=== PATIENT | female | born 1965 | race American Indian/Alaskan Native ===

== ENCOUNTER 2017-04-28 11:42 | Observation (INO) | payer BC, MEDICARE ==
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
[2017-04-28 13:10] LABS: Basophils % (Auto) 0.4 % (0.0-1.8); Eosinophils % (Auto) 0.5 % (0.0-4.3); Hematocrit 37.7 % (30.3-42.9); Hemoglobin 12.1 gm/dl (10.1-14.3); Mean Corpuscular HGB Conc 32 % (30-34); Mean Corpuscular Volume 77 fl (79-97); Platelet Count 233 K/mm3 (140-440); Red Blood Count 4.87 M/mm3 (3.65-5.03); Red Cell Distribution Width 15.1 % (13.2-15.2); White Blood Count 6.1 K/mm3 (4.5-11.0)
[2017-04-28 13:19] LABS: Mean Corpuscular Hemoglobin 25 pg (28-32)
--- NOTE | 2017-04-28 13:26 | XRay Report ---
Single view chest: Compared to 12/05/15. The History: Chest pain. Findings: Normal cardiomediastinal silhouette. Trachea is midline. No consolidation, pneumothorax or pleural effusion. Impression: No acute cardiopulmonary findings.
[2017-04-28 13:44] LABS: Anion Gap 18 mmol/L; BUN/Creatinine Ratio 11.11; Blood Urea Nitrogen 10 mg/dL (7-17); Calcium 9.4 mg/dL (8.4-10.2); Carbon Dioxide 25 mmol/L (22-30); Chloride 104.3 mmol/L (98-107); Glucose 93 mg/dL (65-100); Potassium 3.7 mmol/L (3.6-5.0); Sodium 144 mmol/L (137-145)
[2017-04-28] MEDS ORDERED: MORPHINE IV ONE (13:53)
[2017-04-28] MEDS ORDERED: ASPIRIN PO ONE ×2 (13:53→15:45)
[2017-04-28] MEDS ORDERED: LOVENOX SUB-Q SCH (22:00)
--- NOTE | 2017-04-28 22:51 | History and Physical Report ---
History of Present Illness Date of examination: 04/28/17 Date of admission: 04/28/17 17:01 Chief complaint: Chest pain for few hrs History of present illness: [place]: Patient is a 52-year-old presents to the emergency department with complaint of chest pain. She states the pain started approximately an hour prior to arrival and lasted approximately one hour. She describes the pain as a as sharp in his center chest radiating to her jaw and down her left arm. Denies shortness of breath or nausea. States that she has had a stress test but is unclear as to when it last was performed. She also complains of total body pain. MD Complaint: chest pain -: Sudden Onset: during rest Pain Location: substernal Pain Radiation: neck, jaw/teeth Severity: moderate Quality: sharp Improves With: nothing Worsens With: nothing Other Symptoms: denies: cough, fever, syncope, rash, leg swelling, palpitations , burping - Related Data Home Medications Medication Instructions Recorded Confirmed Last Taken ALPRAZolam [Xanax TAB] 0.5 mg PO BID PRN 12/05/15 12/05/15 Unknown ARIPiprazole [Abilify] 15 mg PO DAILY 12/05/15 12/05/15 Unknown Duloxetine HCl [Cymbalta] 60 mg PO BID 12/05/15 12/05/15 Unknown Gabapentin [Neurontin] 600 mg PO QID 12/05/15 12/05/15 Unknown HYDROcodone/APAP 10-325 [[place] 1 each PO Q8HR PRN 12/05/15 12/05/15 Unknown 10/325] Hydrochlorothiazide [HCTZ] 25 mg PO QDAY 12/05/15 12/05/15 Unknown LORazepam [Ativan] 0.5 mg PO BID PRN 12/05/15 12/05/15 Unknown tiZANidine [Zanaflex] 4 mg PO DAILY PRN 12/05/15 12/05/15 Unknown Allergies Allergy/AdvReac Type Severity Reaction Status Date / Time No Known Allergies Allergy Verified 12/05/15 12:52 Heart Score - HEART Score History: Highly suspicious EKG: Normal Age: 45-65 Risk factors: 1-2 risk factors Troponin: < normal limit HEART Score: 4 - Critical Actions Critical Actions: 4-6 pts:12-16.6% risk of adverse cardiac event. Should be admitted ED Review of Systems ROS: Stated complaint: CHEST PAIN Other details as noted in HPI Constitutional: denies: chills, fever Eyes: denies: eye pain, eye discharge, vision change ENT: denies: ear pain, throat pain Respiratory: denies: cough, shortness of breath, wheezing Cardiovascular: denies: chest pain, palpitations Endocrine: no symptoms reported Gastrointestinal: denies: abdominal pain, nausea, diarrhea Genitourinary: denies: urgency, dysuria, discharge Musculoskeletal: denies: back pain, joint swelling, arthralgia Skin: denies: rash, lesions Neurological: denies: headache, weakness, paresthesias Psychiatric: denies: anxiety, depression Hematological/Lymphatic: denies: easy bleeding, easy bruising ED Past Medical Hx - Past Medical History Hx Hypertension: Yes Hx CVA: No Hx Heart Attack/AMI: No Hx Congestive Heart Failure: No Hx Diabetes: Yes Additional medical history: fibromyalgia chronic back pain - Surgical History Past Surgical History?: No - Family History Family history: no significant - Social History Smoking Status: Never Smoker Substance Use Type: None - Medications Home Medications: Home Medications Medication Instructions Recorded Confirmed Last Taken Type ALPRAZolam [Xanax TAB] 0.5 mg PO BID PRN 12/05/15 12/05/15 Unknown History ARIPiprazole [Abilify] 15 mg PO DAILY 12/05/15 12/05/15 Unknown History Duloxetine HCl [Cymbalta] 60 mg PO BID 12/05/15 12/05/15 Unknown History Gabapentin [Neurontin] 600 mg PO QID 12/05/15 12/05/15 Unknown History HYDROcodone/APAP 10-325 [[place] 1 each PO Q8HR PRN 12/05/15 12/05/15 Unknown History 10/325] Hydrochlorothiazide [HCTZ] 25 mg PO QDAY 12/05/15 12/05/15 Unknown History LORazepam [Ativan] 0.5 mg PO BID PRN 12/05/15 12/05/15 Unknown History tiZANidine [Zanaflex] 4 mg PO DAILY PRN 12/05/15 12/05/15 Unknown History Medications and Allergies Allergies Allergy/AdvReac Type Severity Reaction Status Date / Time No Known Allergies Allergy Verified 12/05/15 12:52 Home Medications Medication Instructions Recorded Confirmed Last Taken Type ARIPiprazole [Abilify] 15 mg PO DAILY 12/05/15 04/28/17 Unknown History Duloxetine HCl [Cymbalta] 60 mg PO BID 12/05/15 04/28/17 Unknown History Gabapentin [Neurontin] 600 mg PO BID 12/05/15 04/28/17 Unknown History HYDROcodone/APAP 10-325 [[place] 1 each PO Q8HR PRN 12/05/15 04/28/17 Unknown History 10/325] LORazepam [Ativan] 0.5 mg PO BID PRN 12/05/15 04/28/17 Unknown History tiZANidine [Zanaflex] 2 mg PO TID PRN 12/05/15 04/28/17 Unknown History Lidocaine/Transparent Dressing 5 mg TRANSDERMA BID 04/28/17 04/28/17 Unknown History Exam - Physical Exam Narrative exam: Lying comfortable in the bed - Constitutional Vitals: Temp Pulse Resp BP Pulse Ox 98.0 F 57 L 18 112/62 100 04/28/17 21:24 04/28/17 21:24 04/28/17 21:24 04/28/17 21:24 04/28/17 21:24 General appearance: Present: no acute distress, well-nourished - EENT Eyes: Present: PERRL ENT: hearing intact, clear oral mucosa - Neck Neck: Present: supple, normal ROM - Respiratory Respiratory effort: normal Respiratory: bilateral: CTA - Cardiovascular Heart rate: 76 Rhythm: regular Heart Sounds: Present: S1 & S2. Absent: rub, click - Extremities Extremities: no ischemia, pulses symmetrical, No edema Peripheral Pulses: within normal limits - Abdominal General gastrointestinal: Present: soft, non-tender, non-distended, normal bowel sounds Female genitourinary: Present: normal - Integumentary Integumentary: Present: clear, warm, dry - Musculoskeletal Musculoskeletal: gait normal, strength equal bilaterally - Psychiatric Psychiatric: appropriate mood/affect, intact judgment & insight - Neurologic Neurologic: CNII-XII intact, moves all extremities - Allied Health Allied health notes reviewed: nursing Results - Labs CBC & Chem 7: 04/28/17 12:53 04/28/17 12:53 Labs: Laboratory Last Values WBC 6.1 K/mm3 (4.5-11.0) 04/28/17 12:53 RBC 4.87 M/mm3 (3.65-5.03) 04/28/17 12:53 Hgb 12.1 gm/dl (10.1-14.3) 04/28/17 12:53 Hct 37.7 % (30.3-42.9) 04/28/17 12:53 MCV 77 fl (79-97) L 04/28/17 12:53 MCH 25 pg (28-32) L 04/28/17 12:53 MCHC 32 % (30-34) 04/28/17 12:53 RDW 15.1 % (13.2-15.2) 04/28/17 12:53 Plt Count 233 K/mm3 (140-440) 04/28/17 12:53 Lymph % (Auto) 45.5 % (13.4-35.0) H 04/28/17 12:53 [place] % (Auto) 7.3 % (0.0-7.3) 04/28/17 12:53 Eos % (Auto) 0.5 % (0.0-4.3) 04/28/17 12:53 Baso % (Auto) 0.4 % (0.0-1.8) 04/28/17 12:53 Lymph # 2.8 K/mm3 (1.2-5.4) 04/28/17 12:53 [place] # 0.4 K/mm3 (0.0-0.8) 04/28/17 12:53 Eos # 0.0 K/mm3 (0.0-0.4) 04/28/17 12:53 Baso # 0.0 K/mm3 (0.0-0.1) 04/28/17 12:53 Seg Neutrophils % 46.3 % (40.0-70.0) 04/28/17 12:53 Seg Neutrophils # 2.8 K/mm3 (1.8-7.7) 04/28/17 12:53 Sodium 144 mmol/L (137-145) 04/28/17 12:53 Potassium 3.7 mmol/L (3.6-5.0) 04/28/17 12:53 Chloride 104.3 mmol/L (98-107) 04/28/17 12:53 Carbon Dioxide 25 mmol/L (22-30) 04/28/17 12:53 Anion Gap 18 mmol/L 04/28/17 12:53 BUN 10 mg/dL (7-17) 04/28/17 12:53 Creatinine 0.9 mg/dL (0.7-1.2) 04/28/17 12:53 Estimated GFR > 60 ml/min 04/28/17 12:53 BUN/Creatinine Ratio 11.11 % 04/28/17 12:53 Glucose 93 mg/dL (65-100) 04/28/17 12:53 Calcium 9.4 mg/dL (8.4-10.2) 04/28/17 12:53 Troponin T < 0.010 ng/mL (0.00-0.029) 04/28/17 12:53 Short CBC 04/28/17 Range/Units 12:53 WBC 6.1 (4.5-11.0) K/mm3 Hgb 12.1 (10.1-14.3) gm/dl Hct 37.7 (30.3-42.9) % Plt Count 233 (140-440) K/mm3 BMP 04/28/17 12:53 Sodium 144 Potassium 3.7 Chloride 104.3 Carbon Dioxide 25 BUN 10 Creatinine 0.9 Glucose 93 Calcium 9.4 Cardiac Enzymes 04/28/17 Range/Units 12:53 Troponin T < 0.010 (0.00-0.029) ng/mL - Imaging and Cardiology EKG: report reviewed (normal sinus rhythm no acute ST-T wave changes) Assessment and Plan Advance Directives: Yes (full code) VTE prophylaxis?: Chemical Plan of care discussed with patient/family: Yes - Patient Problems (1) Acute coronary syndrome Current Visit: Yes Status: Acute Plan to address problem: We will get serial cardiac enzymes and Lexiscan in the morning. Differential diagnosis of costochondritis and reflux esophagitis ruled out. (2) Hypertension Current Visit: Yes Status: Chronic Qualifiers: Hypertension type: essential hypertension Qualified Code(s): I10 - Essential (primary) hypertension Plan to address problem: Continue antihypertensives (3) Diabetes Current Visit: Yes Status: Chronic Qualifiers: Diabetes mellitus type: type 2 Diabetes mellitus complication status: without complication Diabetes mellitus complication detail: D Diabetic retinopathy severity: D Proliferative retinopathy type: P Diabetes mellitus macular edema: D Diabetes mellitus terminal press operator insulin use: D Laterality: L Chronic kidney disease stage: C Plan to address problem: Not on any medications. Will give coverage with insulin depending on Accu- Cheks. (4) Fibromyalgia Current Visit: Yes Status: Chronic Plan to address problem: Continue Zanaflex. And gabapentin. (5) DVT prophylaxis Current Visit: Yes Status: Acute Plan to address problem: On Lovenox 40 mg subcutaneous daily
[2017-04-28] MEDS ORDERED: NORCO 10/325 PO PRN (22:58)
[2017-04-28] MEDS ORDERED: DILAUDID IV PRN (22:58)
[2017-04-28] MEDS ORDERED: AMBIEN PO PRN (22:58)
[2017-04-28] MEDS ORDERED: ZOFRAN IV PRN (22:58)
[2017-04-28] MEDS ORDERED: TYLENOL PO PRN (22:58)
[2017-04-28] MEDS ORDERED: MILK OF MAGNESIA PO PRN (22:58)
[2017-04-28] MEDS ORDERED: ATIVAN PO PRN (22:58)
[2017-04-28] MEDS ORDERED: DULCOLAX PR PRN (22:58)
[2017-04-28] MEDS ORDERED: ZANAFLEX PO PRN (22:58)
[2017-04-28] MEDS ORDERED: NACL 0.9% 1000 ML 1,000 ML IV SCH (23:00)
[2017-04-28 23:59] LABS: Creatine Kinase MB 1.3 ng/mL (0.0-4.0)
[2017-04-28] MEDS: NEURONTIN PO SCH (23:59)
[2017-04-28] MEDS: CYMBALTA PO SCH (23:59)
[2017-04-28] MEDS: PEPCID IV SCH (23:59)
[2017-04-29 00:01] LABS: Creatine Kinase 78 units/L (30-135)
[2017-04-29 07:06] LABS: Basophils % (Auto) 0.6 % (0.0-1.8); Eosinophils % (Auto) 1.5 % (0.0-4.3); Hematocrit 35.7 % (30.3-42.9); Hemoglobin 11.5 gm/dl (10.1-14.3); Mean Corpuscular HGB Conc 32 % (30-34); Mean Corpuscular Volume 78 fl (79-97); Platelet Count 197 K/mm3 (140-440); Red Cell Distribution Width 15.2 % (13.2-15.2); White Blood Count 4.7 K/mm3 (4.5-11.0)
[2017-04-29 07:19] LABS: Creatine Kinase 64 units/L (30-135)
[2017-04-29 07:24] LABS: Mean Corpuscular Hemoglobin 25 pg (28-32)
[2017-04-29 08:12] LABS: Alanine Aminotransferase 6 units/L (7-56); Albumin 3.8 g/dL (3.9-5); Alkaline Phosphatase 59 units/L (35-129); Anion Gap 15 mmol/L; BUN/Creatinine Ratio 13.75; Blood Urea Nitrogen 11 mg/dL (7-17); Calcium 8.7 mg/dL (8.4-10.2); Carbon Dioxide 26 mmol/L (22-30); Chloride 106.4 mmol/L (98-107); Glucose 79 mg/dL (65-100); Potassium 4.1 mmol/L (3.6-5.0); Sodium 143 mmol/L (137-145)
[2017-04-29] MEDS ORDERED: ABILIFY PO SCH (10:00)
[2017-04-29] MEDS ORDERED: LIDOCAINE TRANSDERMA SCH (10:00)
--- NOTE | 2017-04-29 10:29 | Discharge Summary ---
Providers - Providers Date of Admission: 04/28/17 17:01 Attending physician: YARIEL ALMANZAR MD Primary care physician: REFRIGERATOR REPAIRMAN Hospitalization Condition: Stable Hospital course: Patient is a 52-year-old presents to the emergency department with complaint of chest pain. She states the pain started approximately an hour prior to arrival and lasted approximately one hour. She describes the pain as a as sharp in his center chest radiating to her jaw and down her left arm. She was admitted to the hospital, ACS was ruled out, a stress test was planned for her, however the cardiology team noted that she had a negative stress test just in January of this year. Chest pain was attributed to fibromyalgia patient was reassured and she was discharged home in improved condition. She was continued her home meds for her chronic conditions while she was in hospital, she was started on enteric- coated baby aspirin for cardioprotection. Discharge diagnoses Chest pain due to fibromyalgia Hypertension Diabetes [id number], type II Fibromyalgia Disposition: TO HOME OR SELFCARE Time spent for discharge: 33 minutes Core Measure Documentation - Palliative Care Palliative Care/ Comfort Measures: Not Applicable - Core Measures Any of the following diagnoses?: none Exam - Constitutional Vitals: Temp Pulse Resp BP Pulse Ox 98.0 F 53 L 20 100/52 100 04/29/17 05:55 04/29/17 05:55 04/29/17 05:55 04/29/17 05:55 04/29/17 05:55 General appearance: Present: no acute distress, well-nourished - EENT Eyes: Present: PERRL ENT: hearing intact, clear oral mucosa - Neck Neck: Present: supple, normal ROM - Respiratory Respiratory effort: normal Respiratory: bilateral: CTA - Cardiovascular Heart Sounds: Present: S1 & S2. Absent: rub, click - Extremities Extremities: pulses symmetrical, No edema Peripheral Pulses: within normal limits - Abdominal General gastrointestinal: Present: soft, non-tender, non-distended, normal bowel sounds Female genitourinary: Present: normal - Integumentary Integumentary: Present: clear, warm, dry - Musculoskeletal Musculoskeletal: gait normal, strength equal bilaterally - Psychiatric Psychiatric: appropriate mood/affect, intact judgment & insight - Neurologic Neurologic: CNII-XII intact, moves all extremities Plan Follow up with: PRIMARY CARE, [Primary Care Provider] - 3-5 Days Prescriptions: Aspirin EC [Aspirin Enteric Coated TAB] 81 mg PO QDAY #30 tablet.
[2017-04-29 10:33] LABS: Albumin/Globulin Ratio 1.5 %; Total Protein 6.3 g/dL (6.3-8.2)
[2017-04-29] MEDS: CYMBALTA PO SCH (13:31)
[2017-04-29] MEDS: NEURONTIN PO SCH (13:32)
[2017-04-29] MEDS: PEPCID IV SCH (13:32)
[2017-04-29 13:48] VITALS: BP 110/59
[2017-04-29] MEDS ORDERED: LOVENOX SUB-Q SCH (22:00)
== END 2017-04-29 14:38 | disposition home or self-care (01) ==
LOC: ED 11:42 → 4A 17:01
PROVIDERS: ADMIT Emergency Medicine; ATTEND Internal Medicine
DX: I24.9 Acute ischemic heart disease, unspecified (principal); I10 Essential (primary) hypertension; E11.9 Type 2 diabetes mellitus without complications; M79.7 Fibromyalgia
CPT/HCPCS: 36415; 71010; 80048; 80053; 82550; 82553; 84484; 85025; 93005; 93010; 96361; 96372; 96374; 96375; 99285; G0378; J1650; J2270; J7030

== ENCOUNTER 2018-03-25 15:15 | Emergency (ER) | payer BC, MEDICARE ==
[2018-03-25 16:25] LABS: Hematocrit 32.9 % (30.3-42.9); Hemoglobin 11.1 gm/dl (10.1-14.3); Mean Corpuscular HGB Conc 34 % (30-34); Mean Corpuscular Volume 77 fl (79-97); Platelet Count 208 K/mm3 (140-440); Red Blood Count 4.29 M/mm3 (3.65-5.03); Red Cell Distribution Width 14.8 % (13.2-15.2)
[2018-03-25 16:27] LABS: Mean Corpuscular Hemoglobin 26 pg (28-32)
[2018-03-25 16:49] LABS: BUN/Creatinine Ratio 10; Blood Urea Nitrogen 6 mg/dL (7-17); Hemolysis Index 1
--- NOTE | 2018-03-25 16:57 | Emergency Department Report ---
HPI - General Chief Complaint: Overdose Time Seen by Provider: 03/25/18 16:38 - HPI HPI: Room 19 The patient is a 53-year-old female presenting with chief complaint of suicide attempt. At 14:03 patient sent a text to family stating that he wanted to and asked them to take care of her grandmother's. Family arrived at the patient 's home to find the patient on arousable on her bed surrounded by pill bottles. EMS was called and administered Narcan 2 mg and the patient began to respond. The patient admits to suicidal ideation and states she took 2 Cymbalta, 2-10 mg hydrocodone, 2-30 milligram temazepam, 2-900 mg gabapentin and 2- 2 mg Rexulti at the same time she sent the text. Patient states she's felt suicidal for several months. Patient states she is just tired of hurting and she has stress from trying to get her son to graduate. Patient also complains of a sore throat for the past 2-3 days intentionally Location: Mental state, see above Duration: [See above] Quality: Suicidal Severity: Severe Modifying factors: [see above] Context: [see above] Mode of transportation: [not driving] ED Past Medical Hx - Past Medical History Previous Medical History?: Yes Hx Hypertension: Yes (resolved as per patient) Hx Psychiatric Treatment: Yes (depression) Additional medical history: fibromyalgia. chronic back pain - Surgical History Past Surgical History?: Yes Hx Appendectomy: Yes Hx Breast Surgery: Yes (breast reduction) Additional Surgical History: skin grafts - Family History Family history: no significant - Social History Smoking Status: Never Smoker Substance Use Type: None (denies illicit drug use) - Medications Home Medications: Home Medications Medication Instructions Recorded Confirmed Last Taken Type ARIPiprazole [Abilify TAB] 15 mg PO DAILY 12/05/15 04/28/17 Unknown History Duloxetine HCl [Cymbalta] 60 mg PO BID 12/05/15 04/28/17 Unknown History Gabapentin [Neurontin] 600 mg PO BID 12/05/15 04/28/17 Unknown History HYDROcodone/APAP 10-325 [[place] 1 each PO Q8HR PRN 12/05/15 04/28/17 Unknown History 10-325 mg TAB] LORazepam [Ativan] 0.5 mg PO BID PRN 12/05/15 04/28/17 Unknown History tiZANidine [Zanaflex] 2 mg PO TID PRN 12/05/15 04/28/17 Unknown History Lidocaine/Transparent Dressing 5 mg TRANSDERMA BID 04/28/17 04/28/17 Unknown History Aspirin EC [Aspirin Enteric Coated 81 mg PO QDAY #30 tablet. 04/29/17 Unknown Rx TAB] ED Review of Systems ROS: Stated complaint: OVERDOSE Other details as noted in HPI ENT: throat pain Psychiatric: suicidal thoughts Physical Exam - Physical Exam Vital Signs: Vital Signs 03/25/18 03/25/18 03/25/18 15:45 15:51 15:59 Temperature 97.7 F Pulse Rate 62 61 Respiratory 19 16 16 Rate Blood Pressure 112/72 121/77 O2 Sat by Pulse 100 100 100 Oximetry Physical Exam: GENERAL: The patient is well-developed well-nourished female lying on stretcher not appearing to be in acute distress. [] HEENT: Normocephalic. Atraumatic. Extraocular motions are intact. Patient has moist mucous membranes. Oropharynx clear NECK: Supple. Trachea midline CHEST/LUNGS: Clear to auscultation. There is no respiratory distress noted. HEART/CARDIOVASCULAR: Regular. There is no tachycardia. There is no gallop rub or murmur. ABDOMEN: Abdomen is soft, nontender. Patient has normal bowel sounds. There is no abdominal distention. SKIN: There is no rash. There is no edema. There is no diaphoresis. NEURO: The patient is drowsy but answers questions appropriately and is oriented. The patient is cooperative. The patient has no focal neurologic deficits. The patient has normal speech MUSCULOSKELETAL: There is no evidence of acute injury. ED Course Vital Signs 03/25/18 03/25/18 03/25/18 15:45 15:51 15:59 Temperature 97.7 F Pulse Rate 62 61 Respiratory 19 16 16 Rate Blood Pressure 112/72 121/77 O2 Sat by Pulse 100 100 100 Oximetry - Consultations Consultation #1: 03/25/18 17:00 Poison control called 03/25/18 17:09 Case discussed with poison control-recommends 6-8 hr observation ED Medical Decision Making - Lab Data Result diagrams: 03/25/18 16:10 03/25/18 16:10 Laboratory Tests 03/25/18 03/25/18 03/25/18 16:10 16:10 16:10 WBC RBC Hgb Hct MCV MCH MCHC RDW Plt Count Lymph % (Auto) Add Manual Diff Total Counted Seg Neutrophils % Seg Neuts % (Manual) Band Neutrophils % Lymphocytes % (Manual) Reactive Lymphs % (Man) Monocytes % (Manual) Eosinophils % (Manual) Basophils % (Manual) Metamyelocytes % Myelocytes % Promyelocytes % Blast Cells % Nucleated RBC % Seg Neutrophils # Man Band Neutrophils # Lymphocytes # (Manual) Abs React Lymphs (Man) Monocytes # (Manual) Eosinophils # (Manual) Basophils # (Manual) Metamyelocytes # Myelocytes # Promyelocytes # Blast Cells # WBC Morphology Hypersegmented Neuts Hyposegmented Neuts Hypogranular Neuts Smudge Cells Toxic Granulation Toxic Vacuolation Dohle Bodies Pelger-Huet Anomaly Temo Rods Platelet Estimate Clumped Platelets Plt Clumps, EDTA Large Platelets Giant Platelets Platelet Satelliting Plt Morphology Comment RBC Morphology Dimorphic RBCs Polychromasia Hypochromasia Poikilocytosis Anisocytosis Microcytosis Macrocytosis Spherocytes Pappenheimer Bodies Sickle Cells Target Cells Tear Drop Cells Ovalocytes Helmet Cells [place] Bodies [place] Rings Royal Cells Bite Cells Crenated Cell Elliptocytes Acanthocytes (Spur) Rouleaux Hemoglobin C Crystals Schistocytes Malaria parasites [place]lon Bodies Hem Pathologist Commnt Sodium 142 Potassium 3.4 L Chloride 106.7 Carbon Dioxide 39 H Anion Gap 0 BUN 6 L Creatinine 0.6 L Estimated GFR > 60 BUN/Creatinine Ratio 10 Glucose 98 Calcium 8.0 L Urine Color Urine Turbidity Urine pH Ur Specific [place] Urine Protein Urine Glucose (UA) Urine Ketones Urine Blood Urine Nitrite Urine Bilirubin Urine Urobilinogen Ur Leukocyte Esterase Urine WBC (Auto) Urine RBC (Auto) Urine Mucus Salicylates < 0.3 L Urine Opiates Screen Urine Methadone Screen Acetaminophen < 5.0 L Ur Barbiturates Screen Ur Phencyclidine Scrn Ur Amphetamines Screen U Benzodiazepines Scrn Urine Cocaine Screen U Marijuana (THC) Screen Drugs of Abuse Note Plasma/Serum Alcohol Group A Strep Rapid 03/25/18 03/25/18 03/25/18 16:10 16:10 17:50 WBC 4.2 L RBC 4.29 Hgb 11.1 Hct 32.9 MCV 77 L MCH 26 L MCHC 34 RDW 14.8 Plt Count 208 Lymph % (Auto) Meat Counter Worker Add Manual Diff Complete Total Counted 100 Seg Neutrophils % Meat Counter Worker Seg Neuts % (Manual) 29.0 L Band Neutrophils % 0 Lymphocytes % (Manual) 62.0 H Reactive Lymphs % (Man) 0 Monocytes % (Manual) 7.0 Eosinophils % (Manual) 2.0 Basophils % (Manual) 0 Metamyelocytes % 0 Myelocytes % 0 Promyelocytes % 0 Blast Cells % 0 Nucleated RBC % Not Reportable Seg Neutrophils # Man 1.2 L Band Neutrophils # 0.0 Lymphocytes # (Manual) 2.6 Abs React Lymphs (Man) 0.0 Monocytes # (Manual) 0.3 Eosinophils # (Manual) 0.1 Basophils # (Manual) 0.0 Metamyelocytes # 0.0 Myelocytes # 0.0 Promyelocytes # 0.0 Blast Cells # 0.0 WBC Morphology Not Reportable Hypersegmented Neuts Not Reportable Hyposegmented Neuts Not Reportable Hypogranular Neuts Not Reportable Smudge Cells Not Reportable Toxic Granulation Not Reportable Toxic Vacuolation Not Reportable Dohle Bodies Not Reportable Pelger-Huet Anomaly Not Reportable Temo Rods Not Reportable Platelet Estimate Not Reportable Clumped Platelets Not Reportable Plt Clumps, EDTA Not Reportable Large Platelets Not Reportable Giant Platelets Not Reportable Platelet Satelliting Not Reportable Plt Morphology Comment Not Reportable RBC Morphology Normal Dimorphic RBCs Not Reportable Polychromasia Not Reportable Hypochromasia Not Reportable Poikilocytosis Not Reportable Anisocytosis Not Reportable Microcytosis Not Reportable Macrocytosis Not Reportable Spherocytes Not Reportable Pappenheimer Bodies Not Reportable Sickle Cells Not Reportable Target Cells Not Reportable Tear Drop Cells Not Reportable Ovalocytes Not Reportable Helmet Cells Not Reportable [place] Bodies Not Reportable [place] Rings Not Reportable Moo Cells Not Reportable Bite Cells Not Reportable Crenated Cell Not Reportable Elliptocytes Not Reportable Acanthocytes (Spur) Not Reportable Rouleaux Not Reportable Hemoglobin C Crystals Not Reportable Schistocytes Not Reportable Malaria parasites Not Reportable [place] Bodies Not Reportable Hem Pathologist Commnt No Sodium Potassium Chloride Carbon Dioxide Anion Gap BUN Creatinine Estimated GFR BUN/Creatinine Ratio Glucose Calcium Urine Color Yellow Urine Turbidity Clear Urine pH 6.0 Ur Specific [place] 1.012 Urine Protein <15 mg/dl Urine Glucose (UA) Neg Urine Ketones Neg Urine Blood Neg Urine Nitrite Neg Urine Bilirubin Neg Urine Urobilinogen 4.0 Ur Leukocyte Esterase Neg Urine WBC (Auto) < 1.0 Urine RBC (Auto) 2.0 Urine Mucus 2+ Salicylates Urine Opiates Screen Urine Methadone Screen Acetaminophen Ur Barbiturates Screen Ur Phencyclidine Scrn Ur Amphetamines Screen U Benzodiazepines Scrn Urine Cocaine Screen U Marijuana (THC) Screen Drugs of Abuse Note Plasma/Serum Alcohol < 0.01 Group A Strep Rapid 03/25/18 03/25/18 17:50 Unknown WBC RBC Hgb Hct MCV MCH MCHC RDW Plt Count Lymph % (Auto) Add Manual Diff Total Counted Seg Neutrophils % Seg Neuts % (Manual) Band Neutrophils % Lymphocytes % (Manual) Reactive Lymphs % (Man) Monocytes % (Manual) Eosinophils % (Manual) Basophils % (Manual) Metamyelocytes % Myelocytes % Promyelocytes % Blast Cells % Nucleated RBC % Seg Neutrophils # Man Band Neutrophils # Lymphocytes # (Manual) Abs React Lymphs (Man) Monocytes # (Manual) Eosinophils # (Manual) Basophils # (Manual) Metamyelocytes # Myelocytes # Promyelocytes # Blast Cells # WBC Morphology Hypersegmented Neuts Hyposegmented Neuts Hypogranular Neuts Smudge Cells Toxic Granulation Toxic Vacuolation Dohle Bodies Pelger-Huet Anomaly Temo Rods Platelet Estimate Clumped Platelets Plt Clumps, EDTA Large Platelets Giant Platelets Platelet Satelliting Plt Morphology Comment RBC Morphology Dimorphic RBCs Polychromasia Hypochromasia Poikilocytosis Anisocytosis Microcytosis Macrocytosis Spherocytes Pappenheimer Bodies Sickle Cells Target Cells Tear Drop Cells Ovalocytes Helmet Cells [place] Bodies [place] Rings Royal Cells Bite Cells Crenated Cell Elliptocytes Acanthocytes (Spur) Rouleaux Hemoglobin C Crystals Schistocytes Malaria parasites [place] Bodies Hem Pathologist Commnt Sodium Potassium Chloride Carbon Dioxide Anion Gap BUN Creatinine Estimated GFR BUN/Creatinine Ratio Glucose Calcium Urine Color Urine Turbidity Urine pH Ur Specific [place] Urine Protein Urine Glucose (UA) Urine Ketones Urine Blood Urine Nitrite Urine Bilirubin Urine Urobilinogen Ur Leukocyte Esterase Urine WBC (Auto) Urine RBC (Auto) Urine Mucus Salicylates Urine Opiates Screen Presumptive negative Urine Methadone Screen Presumptive negative Acetaminophen Ur Barbiturates Screen Presumptive negative Ur Phencyclidine Scrn Presumptive negative Ur Amphetamines Screen Presumptive negative U Benzodiazepines Scrn Presumptive positive Urine Cocaine Screen Presumptive negative U Marijuana (THC) Screen Presumptive negative Drugs of Abuse Note Disclamer Plasma/Serum Alcohol Group A Strep Rapid Negative - EKG Data -: EKG Interpreted by Me EKG shows normal: sinus rhythm Rate: bradycardia (59 bpm) - EKG Data When compared to previous EKG there are: no significant change Interpretation: unchanged when compared t (04/28/2017), other (QRS 94, QTC 450) - Differential Diagnosis suicidal ideation, intentional overdose Critical care attestation.: If time is entered above; I have spent that time in minutes in the direct care of this critically ill patient, excluding procedure time. ED Disposition Clinical Impression: Suicidal ideation, Intentional drug overdose Disposition: [id number]/[id number] PSY HOSP/PSY UNIT Is pt being admited?: No Does the pt Need Aspirin: No Condition: Serious Referrals: PRIMARY CARE, [Primary Care Provider] - 3-5 Days Time of Disposition: 00:44 (awaiting acceptance)
[2018-03-25 17:06] LABS: Basophils % (Manual) 0 % (0.0-1.8); RBC Morphology Normal; Total Cells Counted 100
[2018-03-25 18:19] LABS: Bilirubin,Urine NEG (Negative); Blood,Urine NEG (Negative); Color,Urine Yellow (Yellow); Mucus,Urine 2+ /HPF; Protein,Urine <15 mg/dL mg/dL (Negative); WBC,Urine < 1.0 /HPF (0.0-6.0)
[2018-03-25 18:24] LABS: Amphetamine Screen,Urine PRESUMPTIVE NEGATIVE; Cannabinoid Screen,Urine PRESUMPTIVE NEGATIVE; Cocaine Screen,Urine PRESUMPTIVE NEGATIVE; Methadone Screen,Urine PRESUMPTIVE NEGATIVE; Opiate Screen,Urine PRESUMPTIVE NEGATIVE
[2018-03-25 18:59] LABS: Benzodiazepines Screen,Urine PRESUMPTIVE POSITIVE
[2018-03-25] MEDS ORDERED: LIDOCAINE VISCOUS 2% PO ONE (23:43)
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
[2018-03-27 17:33] VITALS: BP 122/78
== END 2018-03-27 12:30 ==
LOC: ED 15:15
DX: T43.212A Poisoning by selective serotonin and norepinephrine reuptake inhibitors, intentional self-harm, initial encounter (principal); T40.2X2A Poisoning by other opioids, intentional self-harm, initial encounter; T43.592A Poisoning by other antipsychotics and neuroleptics, intentional self-harm, initial encounter; J02.9 Acute pharyngitis, unspecified; F32.9 Major depressive disorder, single episode, unspecified; I10 Essential (primary) hypertension; M79.7 Fibromyalgia; G89.29 Other chronic pain; Z90.49 Acquired absence of other specified parts of digestive tract; Z98.890 Other specified postprocedural states; Z88.8 Allergy status to other drugs, medicaments and biological substances; Y92.89 Other specified places as the place of occurrence of the external cause
CPT/HCPCS: 36415; 80048; 80307; 81001; 85007; 85025; 87116; 87430; 93005; 93010; 99285; G0480; 80320